=== PATIENT | male | born 1960 | race Two or more races ===

== ENCOUNTER 2021-02-14 11:17 | Observation (INO) | payer BC ==
[~2021-02-14] VITALS: Ht 170.2 cm; Wt 102.1 kg
[2021-02-14 13:35] LABS: HEMOGLOBIN 14.6 gm/dl (14.0-17.5); RED BLOOD COUNT 4.34 M/UL (4.20-5.50); WHITE BLOOD COUNT 8.4 K/UL (4.5-11.0)
[2021-02-14 13:53] LABS: BUN/CREATININE RATIO 18 (0-10)
[2021-02-15 04:48] LABS: HEMOGLOBIN 13.6 gm/dl (14.0-17.5); RED BLOOD COUNT 4.06 M/UL (4.20-5.50); WHITE BLOOD COUNT 7.9 K/UL (4.5-11.0)
[2021-02-15 05:18] LABS: BUN/CREATININE RATIO 17 (0-10)
[2021-02-15] MEDS ORDERED: FUROSEMIDE40 MG PO (11:58)
[2021-02-15] MEDS ORDERED: GLIMEPIRIDE4 MG PO (11:59)
[2021-02-15] MEDS ORDERED: IBU800 MG PO (11:59)
[2021-02-15] MEDS ORDERED: METFORMIN HCL1000 MG PO (12:00)
[2021-02-15] MEDS ORDERED: POTASSIUM CHLO10 ME1 PO (12:01)
[2021-02-15] MEDS ORDERED: ALBUTEROL2.5 MG/3 M NEB (12:01)
[2021-02-15] MEDS ORDERED: VITAMIN D325 MCG PO (12:02)
[2021-02-15 17:03] LABS: BODY FLUID SOURCE PERITONEAL; MONONUCLEAR CELLS 59 (75-100); POLYMORPHONUCLEAR % 41 (0-25); RBC (AUTOMATED) 200 (0-100000); WBC (AUTOMATED) 256 (0-500)
--- NOTE | 2021-02-16 07:06 | NUR ---
PAGED AT THIS TIME TO REPORT ABNORMAL BLOOD PRESSURE OF 86/48.
--- NOTE | 2021-02-16 07:23 | NUR ---
STATED TO LET DAY SHIFT MD KNOW ABOUT HYPOTENSION. NO NEW ORDERS MARIE
[2021-02-16 08:13] LABS: HBSAG SCREEN Negative (Negative); HEP A AB, IGM Negative (Negative); HEP B CORE AB, IGM Negative (Negative); HEP C VIRUS AB <0.1 (0.0-0.9)
[2021-02-16] MEDS ORDERED: ALDACTONE 25MG25 MG PO (08:20)
--- NOTE | 2021-02-16 08:29 | NUR ---
MADE AWARE OF PATIENT BLOOD PRESSURE AT THIS TIME. HE STATES TO HOLD MORNING DIURETICS AND RECHECK BP IN 1 HOUR. HE STATES THAT IF SYSTOLIC IS IN THE 90'S THEN THE PATIENT CAN BE D/C.
--- NOTE | 2021-02-16 12:11 | NUR ---
STATES THAT THE PATIENT CAN BE D/C WITH CURRENT BP DUE TO BEING ASYMPTOMATIC WHEN HE WALKS. PATIENT STATES THAT HE WILL WATCH HIS BP AT HOME AND HE WAS INSTRUCTED TO HOLD DIURETICS IF SYSTOLIC BP IS BELOW 95. PATIENT AND FAMILY VERBALIZED UNDERSTANDING.
== END 2021-02-16 12:20 | disposition home or self-care (01) ==
LOC: ER1 11:17 → CDU 20:12 → MED SURG 4 02-15 13:08
PROVIDERS: Internal Medicine; Physician Assistant; ADMIT Internal Medicine
PROC: 0W9G3ZZ Drainage of Peritoneal Cavity, Percutaneous Approach (ICD-10-PCS; principal; 2021-02-14)
DX: K74.60 Unspecified cirrhosis of liver (principal); R18.8 Other ascites; R16.1 Splenomegaly, not elsewhere classified; E11.9 Type 2 diabetes mellitus without complications; K76.6 Portal hypertension; C22.0 Liver cell carcinoma; K65.9 Peritonitis, unspecified; Z20.822 Contact with and (suspected) exposure to COVID-19; Z90.49 Acquired absence of other specified parts of digestive tract; Z87.891 Personal history of nicotine dependence; Z79.01 Long term (current) use of anticoagulants; Z79.4 Long term (current) use of insulin; Z79.899 Other long term (current) drug therapy
CPT/HCPCS: 80053; 80074; 81001; 82105; 82150; 82962; 83690; 83986; 85025; 85610; 87070; 87205; 89051; 96372; 96374; 96375; 96376; 99285; G0378; J1650; J1885; J1940; P9047; U0002

== ENCOUNTER → 2021-02-14 | Outpatient (CLI) | payer BC ==
[~2021-02-14] MED LIST: ALBUTEROL2.5 MG/3 M NEB; FUROSEMIDE40 MG PO; GLIMEPIRIDE4 MG PO; IBU800 MG PO; METFORMIN HCL1000 MG PO; POTASSIUM CHLO10 ME1 PO; VITAMIN D325 MCG PO
== END ==
LOC: EXRD 01-02 09:30
DX: R74.8 Abnormal levels of other serum enzymes (principal); K74.60 Unspecified cirrhosis of liver; R16.1 Splenomegaly, not elsewhere classified; R18.8 Other ascites
CPT/HCPCS: 76700; J1940; Q9967

== ENCOUNTER → 2021-03-06 | Outpatient (CLI) | payer BC ==
[~2021-03-06] VITALS: Ht 170.2 cm; Wt 102.1 kg
[~2021-03-06] MED LIST changes: +ALDACTONE 25MG25 MG PO
== END ==
LOC: US 13:00 → OPSV 13:36
DX: R18.8 Other ascites (principal)
CPT/HCPCS: 96365; P9047

== ENCOUNTER 2021-03-11 09:59 | Observation (INO) | payer BC ==
[~2021-03-11] VITALS: Ht 172.7 cm; Wt 81.6 kg
[2021-03-11 10:48] LABS: HEMOGLOBIN 16.5 gm/dl (14.0-17.5); RED BLOOD COUNT 4.84 M/UL (4.20-5.50); WHITE BLOOD COUNT 5.7 K/UL (4.5-11.0)
[2021-03-11] MEDS ORDERED: SPIRONOLACTONE25 MG PO (11:54)
[2021-03-11] MEDS ORDERED: AZITHROMYCIN250 MG PO (11:55)
[2021-03-11] MEDS ORDERED: CLINDAMYCIN HC300 MG PO (11:56)
[2021-03-11] MEDS ORDERED: ROXICODONE5 MG PO (11:56)
[2021-03-11] MEDS ORDERED: MUPIROCIN22 GM TOP (11:57)
[2021-03-11 12:49] LABS: BODY FLUID SOURCE PERITONEAL; WBC (AUTOMATED) 20150 (0-500)
[2021-03-11 12:50] LABS: MONONUCLEAR CELLS 7.1 (75-100); POLYMORPHONUCLEAR % 92.9 (0-25); RBC (AUTOMATED) 3400 (0-100000)
[2021-03-11 12:53] LABS: TOTAL PROTEIN, BODY FLUID 2.8 gm/dL
--- NOTE | 2021-03-12 17:55 | NUR ---
APPROX 1505 PATIENT SITTING ON SIDE OF BED AND FELL BACKWARDS ON BED, NONRESPONSIVE. NURSING STAFF ENTERED ROOM, ASSESSED PATIENT. PATIENT PULSE NONPALPABLE, NO RESPIRATIONS NOTED. PATIENT COMFORT CARE DNR. NURSING STAFF ASSISTED PATIENT ON BED CORRECTLY. ASSESSED BY TWO NURSES, NO HEART RATE OR RESPIRATIONS NOTED. SPOUSE AT BEDSIDE NOTIFIED FAMILY. AND [facility] NOTIFIED. TIME OF 1508. [facility] CONTACTED AT 1547. PATIENT POSSIBLE CANIDATE FOR EYE DONATION. [facility] CONTACTED FAMILY, FAMILY REFUSED. CASE CLOSED AT 1649. [facility] NOTIFIED AND ARRIVED TO TRANSPORT PATIENT AT 1746 WITH FAMILY STILL PRESENT. BELONGINGS TOOK HOME WITH FAMILY.
== END 2021-03-12 17:55 | disposition expired ==
LOC: ER1 09:59 → MED SURG 4 11:30 → CDU 11:30 → MED SURG 4 15:43
PROVIDERS: Emergency Medicine; ADMIT Internal Medicine
DX: C22.0 Liver cell carcinoma (principal); C79.9 Secondary malignant neoplasm of unspecified site; A41.9 Sepsis, unspecified organism; R09.2 Respiratory arrest; K74.60 Unspecified cirrhosis of liver; K65.9 Peritonitis, unspecified; E11.9 Type 2 diabetes mellitus without complications; N17.9 Acute kidney failure, unspecified; R18.8 Other ascites; R74.02 Elevation of levels of lactic acid dehydrogenase [LDH]; J44.9 Chronic obstructive pulmonary disease, unspecified; Z66 Do not resuscitate; E87.1 Hypo-osmolality and hyponatremia; Z87.891 Personal history of nicotine dependence; Z20.822 Contact with and (suspected) exposure to COVID-19
CPT/HCPCS: 0240U; 36415; 36600; 71045; 80053; 82803; 83605; 83690; 83880; 84157; 85025; 85610; 85730; 87040; 87205; 89051; 93005; 94664; G0378; J0696; J2270